=== PATIENT | male | born 1995 | race Caucasian/White ===

== ENCOUNTER 2017-01-26 04:47 | Emergency (ER) | payer MEDICAID, OTHER ==
[2017-01-26 04:57] VITALS: BP 126/76
[2017-01-26] MEDS ORDERED: ONDANSETRON 4 MG TAB.RAPDIS PO ONE (06:11)
[2017-01-26] MEDS ORDERED: MAG HYDROX/ALUMINUM HYD/SIMETH 30 ML UDC PO ONE (06:11)
[2017-01-26] MEDS ORDERED: LIDOCAINE HCL 20 ML UDC MM ONE (06:11)
[2017-01-26] MEDS ORDERED: ONDANSETRON 4 MG TAB.RAPDIS ONE (06:16)
--- NOTE | 2017-01-26 06:17 | ERNOTE ---
Medical Problem HPI - Narrative Date of Service: 01/26/17 - General Chief Complaint: Nausea/Vomiting Source: patient - Immun/Allergies/Home Medications Immunizations: IMMUNIZATION HX History of Influenza Vaccine No Allergies/Adverse Reactions: Allergies Penicillins Allergy (Intermediate, Verified 01/26/17 04:57) Other Home Medications: HOME MEDICATIONS NK [No Home Medication] 06/12/14 [Last Taken Unknown] - History of Present History Narrative: 21-year-old states that he was called in earlier to work this morning and awoke at 2 AM with epigastric pain. He states he felt well when he went to bed last night. No history of abdominal disorders or ulcer disease. He states after arriving at work the epigastric pain persisted and was associated with nausea and dry heaves. He then had an emesis with blood and came to the emergency department Timing: constant Severity: moderate Modifying Factors - (Improves): Present: other - nothing Review of Systems - Review of Systems Constitutional: Present: no symptoms reported EYE: Present: no symptoms reported ENT: Present: no symptoms reported Respiratory: Present: no symptoms reported Cardiology: Present: no symptoms reported Gastrointestinal/Abdominal: Present: See HPI Genitourinary: Present: no symptoms reported Musculoskeletal: Present: no symptoms reported Skin: Present: no symptoms reported Neurological: Present: no symptoms reported Endocrine: Present: no symptoms reported Hematologic/Lymphatic: Present: no symptoms reported Psych: Present: no symptoms reported - Patient's Past Medical History Patient History - Medical: No pertinent hx Patient History - Cardiac/Respiratory: No pertinent hx Patient History - Cancer: No Hx of Cancer Patient History - Surgical Procedures: No surgical history Patient History - Other: None - Social History Living Situations: home Psych History: Hx of Depression Does anyone smoke in the home?: No Have you smoked in the past 12 months: No Do you dip or chew tobacco: No Alcohol Use: occasionally Drug Use: none - Immunizations History of Influenza Vaccine: No Physical Exam - Physical Exam General Appearance: Present: mild distress Eye Exam: Normal inspection: bilateral, PERRL: bilateral Ears, Nose, Throat: Present: normal ENT inspection, H, normal pharynx Neck: Present: normal inspection, nontender Respiratory: Present: no respiratory distress, normal breath sounds, no accessory muscle use, chest nontender, lungs clear Cardiovascular/Chest: Present: regular rate, rhythm, no murmur, normal peripheral pulses Gastrointestinal/Abdominal: Present: nondistended, soft, tenderness - epigastric , guarding. Absent: distended, rebound Rectal Exam: Present: deferred Back Exam: Present: normal inspection, normal range of motion, no CVA tenderness , no vertebral tenderness Extremity Exam: Present: normal inspection, non-tender, no edema, normal range of motion Neurological Exam: Present: alert, oriented, normal mood/affect, no motor/ sensory deficits Skin Exam: Present: normal color, warm/dry Lymphatic Exam: Present: no adenopathy ED Progress - Results and Orders Patient's Lab Results:: I have reviewed the patient's lab results. - CBC and Chem screen are WNL - Vital Signs Patient's Vital Signs:: I have reviewed the patient's vital signs. Vital Signs: Vital Signs 01/26/17 04:47 Temperature 37 C Pulse Rate 86 Respiratory 18 Rate Blood Pressure 126/76 O2 Sat by Pulse 98 Oximetry - X-Ray X-Ray #1 X-Ray: abdomen - unremarkable - Progress/Reassessment Chief Complaint: Nausea/Vomiting Progress Note-Subjective: 01/26/17 07:02 Patient improved with GI cocktail labs and x-ray are within normal limits Plan - Plan Plan: Patient's signs and symptoms laboratory and x-ray findings are consistent with acute peptic ulcer disease. H. pylori is pending. We will MS patient purchased some omeprazole [id number] take 20 mg daily and follow-up with primary care provider. He'll need to call and make an appointment in that he does not currently have a PCP here in [place]. Departure - Departure Clinical Impression: Peptic ulcer disease Disposition: Home self-care Condition: Fair Instructions: Peptic Ulcer Additional Instructions: Buy some [id number] omeprazole 20 mg and take 1 tablet daily. Follow-up with one of our providers in the family practice clinic as soon as possible. If you do not hear from us in the next couple of days please call for the results of the H. pylori test
[2017-01-26 06:32] LABS: Hematocrit 45.1 % (42.0-52.0); Hemoglobin 14.8 gm/dL (13.5-18.0); Mean Cell Volume 85.3 fl (78-100); Mean Corpuscular Hgb Conc 32.8 g/dl (32-36); Mean Platelet Volume 10.4 fl (6.0-9.5); Neutrophil # 5.1 K/mm3 (1.3-6.0); Neutrophil % 58.2 % (42-75.0); Platelet Count 247 K/mm3 (150-450); Red Blood Count 5.29 M/mm3 (4.7-6.0); Red Cell Distribution Width 13.1 % (11.5-14.0); White Blood Count 8.7 K/mm3 (4.0-10.5)
[2017-01-26 06:43] LABS: Albumin * 4.4 gm/dl (3.4-5.0); Anion Gap 14.8 mmol/L (6.8-13.8); BUN/Creatinine Ratio 8.4 (9.0-21.6); Bilirubin, Total 0.5 mg/dL (0.0-1.1); Ca. Corrected For Albumin 8.6 mg/dL (8.4-10.2); Calcium * 9.2 mg/dL (7.9-10.9); Carbon Dioxide 29.3 mmol/L (24-32.6); Potassium 4.1 mmol/L (3.4-4.6); Total Protein 7.9 gm/dL (6.2-8.2)
== END 2017-01-26 07:19 | disposition home or self-care (01) ==
LOC: ER 04:47
DX: K27.9 Peptic ulcer, site unspecified, unspecified as acute or chronic, without hemorrhage or perforation (principal)